=== PATIENT | male | born 1965 | race Caucasian/White ===

== ENCOUNTER 2020-06-20 15:30 | Outpatient (REF) | payer OTHER, SELFPAY | END 2020-06-20 15:31 | disposition home or self-care (01) | LOC: HO.LAB 15:30 | PROVIDERS: Visit Provider Internal Medicine | DX: Z20.828 Contact with and (suspected) exposure to other viral communicable diseases (principal) | CPT/HCPCS: 87635 ==

== ENCOUNTER 2022-02-11 12:07 | Outpatient (REF) | payer OTHER, SELFPAY ==
[2022-02-11 12:21] LABS: MANUAL DIFF FLAG NO
[2022-02-11 12:37] LABS: Basophils Absolute Auto 0.2 X10*3/uL (0.0-0.2); Eosinophils Absolute Auto 0.3 X10*3/uL (0.0-0.4); Eosinophils Percent Auto 2.2 % (0-4); Hematocrit 45.7 % (42.0-52.0); Hemoglobin 15.3 g/dl (14.0-18.0); Imm Gran Abs Auto 0.13 X10*3/uL (0.00-0.03); Imm Gran Pct Auto 0.8 % (0.0-0.4); Lymphocytes Absolute Auto 3.3 X10*3/uL (1.2-4.9); Lymphocytes Percent Auto 21.1 % (20-40); Mean Corpuscular HGB Conc 33.5 g/dl (31.0-36.0); Mean Corpuscular Hemoglobin 29.1 pg (27.0-33.0); Mean Platelet Volume 10.6 fL (9.4-12.4); Monocytes Absolute Auto 0.9 X10*3/uL (0.1-1.2); Neutrophils Absolute Auto 10.9 x10*3/uL (2.0-8.3); Neutrophils Percent Auto 68.9 % (45-73); Platelet Count 312 X10*3/uL (160-400); Red Blood Count 5.25 X10*6/uL (4.60-5.80); Red Cell Distribution Width 12.9 % (11.0-16.0); White Blood Count 15.8 X10*3/uL (4.8-10.8)
[2022-02-11 12:56] LABS: Alanine Aminotransferase 22 U/L (0-40); Albumin Level 4.4 g/dL (3.5-5.0); Alkaline Phosphatase 88 U/L (39-117); Anion Gap 13 (12-20); Aspartate Amino Transferase 14 U/L (5-37); Bilirubin Total 0.5 mg/dL (0.0-1.0); Blood Urea Nitrogen 7 mg/dL (9-16); Calcium 9.2 mg/dL (8.4-10.2); Carbon Dioxide 28 mmol/L (22-29); Chloride 98 mmol/L (96-108); Cholesterol 244 mg/dL; Estimated Glomerular Filt Rate > 60; Glucose Fasting 277 mg/dL (60-99); HDL Cholesterol 31 mg/dL; LDL Cholesterol Calculated 144 mg/dl; Potassium 4.6 mmol/L (3.3-5.1); Sodium 134 mmol/L (135-145); Total Protein 6.9 g/dL (6.5-8.0); Triglycerides 347 mg/dL
[2022-02-11 13:15] LABS: TSH reflex Free T4 1.56 uIU/mL (0.32-4.0)
[2022-02-11 13:48] LABS: Appearance Urine CLEAR; Color Urine YELLOW; Glucose Urine UA 100 MG/DL (NEG); Leukocyte Esterase Urine NEG (NEG); Nitrite Urine NEG (NEG); Urine Blood NEG (NEG); Urine Ketones NEG (NEG); Urine Protein NEG (NEG-TRACE)
== END 2022-02-11 12:08 | disposition home or self-care (01) ==
LOC: HO.LAB 12:07
PROVIDERS: PCP Internal Medicine; Visit Provider Internal Medicine
DX: E78.00 Pure hypercholesterolemia, unspecified (principal); R03.0 Elevated blood-pressure reading, without diagnosis of hypertension; F17.200 Nicotine dependence, unspecified, uncomplicated; E78.5 Hyperlipidemia, unspecified
CPT/HCPCS: 36415; 80053; 80061; 81003; 84443; 85025

== ENCOUNTER 2022-02-26 12:36 | Outpatient (REF) | payer OTHER, SELFPAY ==
--- NOTE | ~2022-02-26 | XR_ITS ---
EXAMINATION: XR LUMBOSACRAL SPINE CLINICAL INFORMATION: Low back pain, unspecified. COMPARISON: None TECHNIQUE: Three views of the lumbosacral spine. FINDINGS: Normal lumbar segmentation with 5 [id number] vertebral bodies of normal height and normal lumbar lordosis. No vertebral compression or spondylolisthesis or destructive process. There is borderline mild multilevel vertebral spurring. Mild disc narrowing L4-L5. No endplate sclerosis or erosive change. Facet degeneration L4 through S1. The SI joints and visualized sacrum are unremarkable. XR/XR lumbar spine 2-3V IMPRESSION: -Mild disc narrowing L4-L5. -Facet degeneration L4 through S1. -No vertebral compression, spondylolisthesis, or destructive process.
[2022-02-26 13:46] LABS: C Reactive Protein 2.95 mg/dL (< or = 0.50); Rheumatoid Factor < 15.0 IU/mL (<15.0)
[2022-02-26 14:07] LABS: Erythrocyte Sedimentation Rate 5 MM/HR (0-15)
[2022-02-26 14:21] LABS: Folate 10.2 ng/mL (> or = 4.0); Vitamin B12 755 pg/mL (200-900)
[2022-02-27 21:37] LABS: Lyme Abs Screen <0.90 index
[2022-03-03 10:22] LABS: Anti Nuclear Antibody Screen NEGATIVE (NEGATIVE)
== END 2022-02-26 12:37 | disposition home or self-care (01) ==
LOC: HO.LAB 12:36
PROVIDERS: PCP Internal Medicine; Visit Provider Internal Medicine
DX: I73.9 Peripheral vascular disease, unspecified (principal); G89.29 Other chronic pain; M54.50 Low back pain, unspecified
CPT/HCPCS: 36415; 72100; 82607; 82746; 85652; 86038; 86039; 86140; 86431; 86617; 86618

== ENCOUNTER → 2022-05-11 08:43 | Outpatient (BNVA) | payer OTHER, SELFPAY | PROVIDERS: PCP Internal Medicine; Visit Provider Internal Medicine | DX: I73.9 Peripheral vascular disease, unspecified (principal) | CPT/HCPCS: 99202 ==

== ENCOUNTER 2022-09-08 11:51 | Outpatient (REF) | payer OTHER, SELFPAY ==
[2022-09-08 12:14] LABS: MANUAL DIFF FLAG NO
[2022-09-08 12:40] LABS: Basophils Absolute Auto 0.2 X10*3/uL (0.0-0.2); Basophils Percent Auto 1.2 % (0-2); Eosinophils Absolute Auto 0.5 X10*3/uL (0.0-0.4); Eosinophils Percent Auto 3.2 % (0-4); Hemoglobin 13.9 g/dl (14.0-18.0); Imm Gran Abs Auto 0.09 X10*3/uL (0.00-0.03); Imm Gran Pct Auto 0.6 % (0.0-0.4); Lymphocytes Absolute Auto 3.2 X10*3/uL (1.2-4.9); Lymphocytes Percent Auto 23.4 % (20-40); Mean Corpuscular HGB Conc 33.1 g/dl (31.0-36.0); Mean Corpuscular Hemoglobin 28.6 pg (27.0-33.0); Mean Corpuscular Volume 86.4 fL (80.0-98.0); Mean Platelet Volume 10.2 fL (9.4-12.4); Monocytes Absolute Auto 1.1 X10*3/uL (0.1-1.2); Monocytes Percent Auto 8.2 % (2-11); Neutrophils Absolute Auto 8.8 x10*3/uL (2.0-8.3); Neutrophils Percent Auto 63.4 % (45-73); Platelet Count 341 X10*3/uL (160-400); Red Blood Count 4.86 X10*6/uL (4.60-5.80); Red Cell Distribution Width 13.5 % (11.0-16.0); White Blood Count 13.9 X10*3/uL (4.8-10.8)
[2022-09-08 13:14] LABS: Alanine Aminotransferase 19 U/L (0-40); Albumin Level 4.3 g/dL (3.5-5.0); Alkaline Phosphatase 75 U/L (39-117); Anion Gap 13 (12-20); Aspartate Amino Transferase 18 U/L (5-37); Bilirubin Total 0.4 mg/dL (0.0-1.0); Blood Urea Nitrogen 14 mg/dL (9-16); Calcium 9.3 mg/dL (8.4-10.2); Carbon Dioxide 28 mmol/L (22-29); Chloride 100 mmol/L (96-108); Cholesterol 170 mg/dL; Estimated Glomerular Filt Rate > 60; Glucose Fasting 124 mg/dL (60-99); HDL Cholesterol 27 mg/dL; LDL Cholesterol Calculated 105 mg/dl; Potassium 4.5 mmol/L (3.3-5.1); Sodium 136 mmol/L (135-145); Total Protein 6.6 g/dL (6.5-8.0); Triglycerides 193 mg/dL
[2022-09-08 13:35] LABS: TSH reflex Free T4 2.95 uIU/mL (0.32-4.0); Vitamin D 25-OH Total 40.9 ng/mL (>30)
[2022-09-08 14:21] LABS: Estimated Average Glucose 134 mg/dL; Hemoglobin A1c % 6.3 %
== END 2022-09-08 11:52 | disposition home or self-care (01) ==
LOC: HO.LAB 11:51
PROVIDERS: PCP Internal Medicine; Visit Provider Internal Medicine
DX: E78.00 Pure hypercholesterolemia, unspecified (principal); E11.9 Type 2 diabetes mellitus without complications; E55.9 Vitamin D deficiency, unspecified; I10 Essential (primary) hypertension
CPT/HCPCS: 36415; 80053; 80061; 82306; 83036; 84443; 85025

== ENCOUNTER → 2022-09-25 09:59 | Outpatient (BNVA) | payer OTHER, SELFPAY | PROVIDERS: PCP Internal Medicine; Visit Provider Internal Medicine | DX: I73.9 Peripheral vascular disease, unspecified (principal) | CPT/HCPCS: 99212 ==

== ENCOUNTER 2023-02-26 03:29 | Emergency (ER) | payer OTHER, SELFPAY ==
[2023-02-26 03:39] VITALS: BP 173/103; BP 180/100; PULSE 85; PULSE 99; RESP 18; TEMP 36.6; O2SAT 98; O2SAT 99; BMI 27.0
[2023-02-26 03:54] VITALS: PULSE 85
[2023-02-26 03:58] VITALS: BP 173/103; PULSE 85; RESP 16; TEMP 36.8; O2SAT 98
--- NOTE | 2023-02-26 03:59 | PC.NURSE ---
Pt continually needs redirecting to return to his room and is escalating verbally, exhibiting increased agitation and irritability. MD aware. Security requested for safety. Will continue to monitor.
--- NOTE | 2023-02-26 04:00 | ED_ITS ---
HPI - General Adult General Chief complaint: ETOH/Substance Use Stated complaint: withdraws Time Seen by Provider: 02/26/23 03:56 Source: patient Mode of arrival: EMS Limitations: no limitations History of Present Illness HPI narrative: Patient comes in the emergency room complaining of fentanyl withdrawal. Patient states that he has pain all over, denies nausea. Patient states that he was seen at [facility] earlier today but he left against medical advise because he wanted a cigarette and he was denied the opportunity to smoke in the hospital. Patient states that he is on methadone, requesting a dose . Patient states that he normally uses six bags of fentanyl per day. Related Data Home Medications Medication Instructions Recorded Confirmed methadone 10 mg/mL oral concentrate 85 mg PO DAILY 06/03/21 09/25/22 fluoxetine 20 mg capsule 20 mg PO DAILY 02/26/22 09/25/22 Previous Rx's Medication Instructions Recorded sitagliptin phosphate 100 mg 100 mg PO DAILY 30 days #30 tabs 05/11/22 tablet (Januvia) atorvastatin 10 mg tablet 10 mg PO BEDTIME #90 tabs 10/07/22 metformin 1,000 mg tablet 1,000 mg PO BID 30 days #60 tabs 10/29/22 trazodone 50 mg tablet 50 - 75 mg PO BEDTIME #45 tabs 02/23/23 Allergies Allergy/AdvReac Type Severity Reaction Status Date / Time No Known Allergies Allergy Verified 09/25/22 10:05 Review of Systems Review of Systems: Constitutional : No Weight loss, No Fever, No Chills, No Night Sweats, complaining of ?pain all over? ENT/Mouth : No Hearing loss, No Ear Pain, No Nasal Congestion, No Sinus Pain, No Hoarseness, No sore throat, No Rhinorrhea, No Swallowing Difficulty Eyes: No Eye Pain, No Swelling, No Redness, No Foreign Body, No Discharge, No Vision Changes Cardiovascular : No Chest Pain, No SOB, No Dyspnea on Exertion, No Orthopnea, No Edema, No Palpitations Respiratory : No Cough, No Sputum, No Wheezing, No Smoke Exposure, No Dyspnea Gastrointestinal : No Nausea, No Vomiting, No Diarrhea, No Constipation, No abdominal Pain, No Hematochezia, No Melena Genitourinary : no irregular bleeding, No Dysuria, No Urinary Frequency, No Hematuria, No Urinary Incontinence, No Urgency, No Flank Pain, No Urinary Flow Changes, No Hesitancy Musculoskeletal : No joint pain, No Myalgias, No Joint Swelling Skin : No Skin Lesions, No rash Neuro : No Weakness, No Numbness, No Paresthesias, No Loss of Consciousness, No Dizziness, No Headache Psych : No Anxiety/Panic, No Depression, No SI/HI/AH/VH, admits to using fentanyl daily Heme/Lymph: No Bruising, No Bleeding,No Lymphadenopathy Endocrine : No Polyuria, No Polydipsia, No Temperature Intolerance [facility] Past Medical History Medical History (Updated 02/26/23 @ 04:06 by Hamida Guan MD) Allergic rhinitis Anxiety Cerebellar infarct Depression Diabetes mellitus Elevated blood pressure reading Epigastric pain GERD without esophagitis History of substance abuse Hyperlipidemia Insomnia Overweight (BMI 25.0-29.9) Smoker Substance abuse Surgical History History of surgery Family History Family History Father Heart problem Hypertension Diabetes Mother S/P CABG x 1 Maternal Grandmother Medical history unknown Other Mental health problem Social History Social History Housing: Apartment Alcohol intake: never Patient Tobacco Use Status: Current someday Tobacco user Smoked in Last 30 Days: Yes Second Hand Smoke Exposure: Yes Use of substances other than those prescribed or required for medical reasons: Yes Substance Use Type Other:: Fentanyl Substance Use Frequency: Daily Last Used Substance: Hours (ago) Advance Directives: No Advance Directives Information Provided: No service: No Current occupational status: unemployed Cognitive needs: No Hearing needs: No Vision needs: Yes Physical Exam ED Vital Signs: Vital Signs - 24 hr 02/26/23 03:39 02/26/23 03:58 02/26/23 06:14 Temperature 98 F 98.2 F Pulse Rate 85 85 Respiratory Rate 18 16 17 Blood Pressure 173/103 H 173/103 H Pulse Oximetry 99 98 Oxygen Delivery Method Room Air Room Air BMI result Body Mass Index 27.0 Const Other: Appearance: Alert. Oriented X3. Yelling and screaming, demanding medication Eyes: Pupils equal, round and reactive to light. ENT: Pharynx normal. Neck: Normal inspection. Neck supple. No lymph nodes noted. No crepitus CVS: Normal heart rate and rhythm. Pulses normal. Normal S1 and S2 Respiratory: No respiratory distress. Breath sounds normal. No Wheezing. No rales Abdomen: Soft and nontender. No rigidity. No distention. Skin: Skin warm and dry. Normal skin color. Normal skin turgor. Extremities: No lower extremity edema. No Lacerations. No Rash Neuro: Oriented X 3. No motor deficit. No sensory deficit. Moving all extremities. No slurred speech. CN 2 through 12 grossly intact Psych: Anxious, yelling, demanding pain medication Course Course Course Narrative: -I discussed with the patient that in about an hour his methadone clinic will open and once we confirm the methadone dose, we can provide him with and dose. -in the meantime, patient being provided with p.o. acetaminophen, clonidine, Imodium, nicotine patch, sublingual Zofran to help him with the symptoms -we will contact the care team/Angela Mcgarry in the morning, consult pending -physician observation started that for a.m. Medications Administered Discontinued Medications Generic Name Dose Route Start Last Admin Trade Name Mireya PRN Reason Stop Dose Admin Acetaminophen 975 mg 02/26/23 03:58 02/26/23 04:07 Acetaminophen 325 Mg Tablet PO 02/26/23 03:59 975 mg ONCE ONE Administration Clonidine HCl 0.2 mg 02/26/23 03:58 02/26/23 04:07 Clonidine Hcl 0.2 Mg Tablet PO 02/26/23 03:59 0.2 mg ONCE ONE Administration Protocol Loperamide HCl 4 mg 02/26/23 03:58 02/26/23 04:07 Loperamide Hcl 2 Mg Capsule PO 02/26/23 03:59 4 mg ONCE ONE Administration Nicotine 21 mg 02/26/23 03:58 02/26/23 04:07 Nicotine 21 Mg Patch.Td24 TRANSDERMA 02/26/23 03:59 21 mg ONCE ONE Administration Ondansetron HCl 4 mg 02/26/23 03:58 02/26/23 04:07 Ondansetron Odt 4 Mg Tab.Rapdis TRANSLINGU 02/26/23 03:59 4 mg ONCE ONE Administration Medical Decision Making Medical Decision Making MDM Narrative: -patient's nurse was able to confirm the methadone dose, which is 30 mg. Patient provided this morning with the 30 mg dose Lab Data Labs: Lab Results 02/26/23 Range/Units 04:16 Urine Opiates Screen POSITIVE H (Not Detect) Urine Fentanyl Screen POSITIVE H (Not Detect) Ur Barbiturates Screen Not Detected (Not Detect) Ur Phencyclidine Scrn Not Detected (Not Detect) Ur Amphetamines Screen Not Detected (Not Detect) U Benzodiazepines Scrn Not Detected (Not Detect) Urine Cocaine Screen Not Detected (Not Detect) U Marijuana (THC) Screen POSITIVE H (Not Detect) Discharge Plan Discharge Clinical Impression: Substance abuse Patient Disposition: Home, Self-Care Prescriptions: No Action atorvastatin 10 mg tablet 10 mg PO BEDTIME Qty: 90 1RF metformin 1,000 mg tablet 1,000 mg PO BID 30 Days Qty: 60 3RF trazodone 50 mg tablet 50 - 75 mg PO BEDTIME Qty: 45 2RF methadone 10 mg/mL concentrate 85 mg PO DAILY fluoxetine 20 mg capsule 20 mg PO DAILY Januvia 100 mg tablet 100 mg PO DAILY 30 Days Qty: 30 3RF
[2023-02-26] MEDS: cloNIDine HCL 0.2 MG TABLET PO (04:07)
[2023-02-26] MEDS: Ondansetron ODT 4 MG TAB.RAPDIS TRANSLINGU (04:07)
[2023-02-26] MEDS: Acetaminophen 325 MG TABLET 975 MG PO (04:07)
[2023-02-26] MEDS: Nicotine 21 MG PATCH.TD24 TRANSDERMA (04:07)
[2023-02-26] MEDS: Loperamide HCl 2 MG CAPSULE 4 MG PO (04:07)
[2023-02-26 04:33] LABS: Amphetamine Screen Urine Not Detected (Not Detect); Barbiturates, Urine Not Detected (Not Detect); Benzodiazepines Screen Urine Not Detected (Not Detect); Cannabinoid Screen Urine POSITIVE (Not Detect); Cocaine Screen Urine Not Detected (Not Detect); Fentanyl, urine POSITIVE (Not Detect); Opiate Screen Urine POSITIVE (Not Detect); Phencyclidine Screen Urine Not Detected (Not Detect)
[2023-02-26 06:14] VITALS: RESP 17
--- NOTE | 2023-02-26 06:34 | PC.NURSE ---
Pt arrived to ER reporting withdrawals from fentanyl. Pt reports he usually uses 6 bags a day and his last use was the morning of 02/25. Pt reports he doesn't feel good and has pain all over. Denied SOB, hallucinations, has minimal tremors, and is very restless. Pt was seen at [facility] 02/25 for the same but left because he wanted a cigarette. Pt states he is on methadone and has been demanding his dose, despite attempts to explain that we cannot get methadone until we verify the dose from the clinic. Pt was inconsistent in his dose and clinic. Stated he was going somewhere in [place] but wants to go somewhere in [place]. Paperwork from [facility] was found stating his last dose was 02/25 at 30mg. Pt was resistant to changeover, security was present and searched his belongings, which turned up with nothing. Pt was medicated per OCT and eventually laid down in bed. Pt is now awake and restless, asking for his methadone. Pt was willing to put a merry on over his clothes but will not get undressed underneath.
[2023-02-26] MEDS: methADONE HCl 20 MG/2 ML ORAL.CONC 30 MG PO (06:48)
--- NOTE | 2023-02-26 10:27 | MHC.RECOVRN ---
Met with pt in ED19 after pt presented to ED for withdrawal symptoms. Pt wandering ED, brought back to room. Pt appears anxious but comfortable. Pt states I'm still withdrawing. I need more methadone. Look at my face, my face doesn't look like this. When asked to elaborate on withdrawal symptoms, pt continues to reference his face and reports upset stomach. No gooseflesh, diaphoresis, rhinorrhea, tearing. Pt reports taking 100 mg methadone at an [facility] in [place], last dose a couple months ago. Pt received 30 mg methadone at [facility] yesterday and 30 mg today at [facility] Pt educated on titration process. Pt requesting referral to be sent to [facility] as it is closer to his home in [place]. Pt plans to follow up with [facility] in the morning. Pt aware of location, time to go, what to bring. Denies questions or concerns at this time. Referral sent to [facility]. RN and provider aware.
== END 2023-02-26 09:11 | disposition home or self-care (01) ==
PROVIDERS: Emergency Medicine; Emergency Provider Emergency Medicine Emergency Medical Services; PCP Internal Medicine
DX: F19.10 Other psychoactive substance abuse, uncomplicated (principal); F11.20 Opioid dependence, uncomplicated; E11.9 Type 2 diabetes mellitus without complications; E78.5 Hyperlipidemia, unspecified; F17.210 Nicotine dependence, cigarettes, uncomplicated; Z79.02 Long term (current) use of antithrombotics/antiplatelets; Z79.4 Long term (current) use of insulin
CPT/HCPCS: 80307; 99285

== ENCOUNTER 2023-04-02 14:56 | Outpatient (AMB) | payer OTHER, SELFPAY ==
[2023-04-02 14:58] VITALS: BP 130/74; PULSE 65; O2SAT 94; BMI 26.6
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
== END 2023-04-02 15:26 | disposition home or self-care (01) ==
PROVIDERS: PCP Internal Medicine; Visit Provider Internal Medicine
DX: E11.65 Type 2 diabetes mellitus with hyperglycemia (principal)
CPT/HCPCS: 83036; 99214

== ENCOUNTER 2023-04-16 12:54 | Outpatient (REF) | payer OTHER, SELFPAY ==
--- NOTE | 2023-04-16 12:56 | EMG_ITS ---
Please see EMG / Nerve Conduction Report. MTDD
--- NOTE | 2023-04-16 13:32 | HO.EMG-NCS ---
Physiatry - EMG/NCS EMG/NCS Chief complaint: Chronic bilateral feet pain numbness, chronic back pain, diabetic. Reason for referral: Evaluate for neuropathy Referred by: Dr. Pulido Procedure done: Bilateral lower extremity NCS/EMG Precautions and/or limitations: None The limb temperature was monitored continuously and remained between 32-36 degrees C during the performance of the NCS. Nerve Conduction Studies Anti Sensory Summary Table ?Stim Site NR Onset (ms) Norm Onset (ms) Peak (ms) Norm Peak (ms) O-P Amp (?V) Norm O-P Amp Site1 Site2 Delta-0 (ms) Dist (cm) Zafar (m/s) Norm Zafar (m/s) Left Sural Anti Sensory (Lat Mall) Calf NR <4.0 >5.0 Calf Lat Mall 14.0 Right Sural Anti Sensory (Lat Mall) Calf ? 4.5 4.7 <4.0 0.0 >5.0 Calf Lat Mall 4.5 14.0 31 Motor Summary Table ?Stim Site NR Onset (ms) Norm Onset (ms) O-P Amp (mV) Norm O-P Amp iAmp (mV) Amp (1st) (%) Site1 Site2 Delta-0 (ms) Dist (cm) Zafar (m/s) Norm Zafar (m/s) Left Peroneal Motor (Ext Dig Brev) Ankle ? 4.8 <4.0 3.9 >2.5 4.7 100.0 Ankle Ext Dig Brev 4.8 0.0 B Fib ? 11.6 3.4 4.0 87.2 B Fib Ankle 6.8 29.5 43 >40 Poplt ? 12.2 3.4 3.8 87.2 Poplt B Fib 0.6 4.0 67 >40 Right Peroneal Motor (Ext Dig Brev) Ankle ? 4.1 <4.0 4.5 >2.5 5.4 100.0 Ankle Ext Dig Brev 4.1 0.0 B Fib ? 10.5 4.0 4.9 88.9 B Fib Ankle 6.4 28.5 45 >40 Poplt ? 12.1 4.0 4.8 88.9 Poplt B Fib 1.6 4.0 25 >40 Left Tibial Motor (Abd Chery Brev) Ankle ? 3.3 <5 2.3 >2.5 2.9 100.0 Ankle Abd Chery Brev 3.3 0.0 Knee ? 13.8 1.3 1.6 56.5 Knee Ankle 10.5 39.5 38 >40 Right Tibial Motor (Abd Chery Brev) Ankle ? 3.8 <5 4.4 >2.5 7.1 100.0 Ankle Abd Chery Brev 3.8 0.0 Knee ? 12.0 3.7 5.4 84.1 Knee Ankle 8.2 37.0 45 >40 EMG ?Side Muscle Nerve Root Ins Act Fibs Psw Amp Dur Poly Recrt Int Pat Comment Right AbdHallucis MedPlantar S1-2 Nml Nml Nml Nml Nml 0 Nml Complete Right AntTibialis Dp Br Peron L4-5 Nml Nml Nml Nml Nml 0 Nml Complete Right PostTibialis Tibial L5, S1 Nml Nml Nml Nml Nml 0 Nml Complete Right MedGastroc Tibial S1-2 Nml Nml Nml Nml Nml 0 Nml Complete Right VastusMed Femoral L2-4 Nml Nml Nml Nml Nml 0 Nml Complete Left AbdHallucis MedPlantar S1-2 Nml Nml Nml Nml Nml 0 Nml Complete Left AntTibialis Dp Br Peron L4-5 Nml Nml Nml Nml Nml 0 Nml Complete Left PostTibialis Tibial L5, S1 Nml Nml Nml Nml Nml 0 Nml Complete Left MedGastroc Tibial S1-2 Nml Nml Nml Nml Nml 0 Nml Complete Left VastusMed Femoral L2-4 Nml Nml Nml Nml Nml 0 Nml Complete Paraspinal EMG ?Side Muscle Nerve Root Ins Act Fibs Psw Comment Right Lumbar Upper Rami Nml Nml Nml Right Lumbar Mid Rami Nml Nml Nml Right Lumbar Lower Rami Nml Nml Nml Left Lumbar Upper Rami Nml Nml Nml Left Lumbar Mid Rami Nml Nml Nml Left Lumbar Lower Rami Nml Nml Nml FINDINGS: Right peroneal motor nerve showed prolonged distal latency, normal amplitude and slow conduction velocity across the fibula. Right sural sensory nerve showed prolonged peak latency and small amplitude. Left peroneal motor nerve showed prolonged distal latency, normal amplitude and normal conduction velocity. Left tibial motor showed normal distal latency, small amplitude and slow conduction velocity. Left sural sensory nerve showed absent response. All other nerves tested were within normal. Concentric needle EMG was performed in selected muscles of the bilateral lower extremity and lumbar paraspinals. Study revealed Signs of electric abnormalities as shown in the table below. IMPRESSION: 1. This is an abnormal study. 2. 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 3. There is no electrodiagnostic evidence for lumbosacral plexopathy or lumbar radiculopathy. Thank you for your kind referral. Judy Leyva MD, KAMALJIT Board Certified, [place] [employer] and Rehabilitation (ABPMR) Board Certified, [place] Board of Electrodiagnostic Medicine (ABEM)
== END 2023-04-16 12:55 | disposition home or self-care (01) ==
LOC: HO.NEURO 12:54
PROVIDERS: PCP Internal Medicine; Visit Provider Internal Medicine
DX: G57.93 Unspecified mononeuropathy of bilateral lower limbs (principal)
CPT/HCPCS: 95860; 95886; 95907; 95909

== ENCOUNTER → 2023-04-16 12:54 | Outpatient (BNV) | payer OTHER, SELFPAY | PROVIDERS: PCP Internal Medicine; Visit Provider Physical Medicine & Rehabilitation | DX: G62.89 Other specified polyneuropathies (principal) | CPT/HCPCS: 95886; 95909 ==

== ENCOUNTER 2023-08-13 15:36 | Outpatient (AMB) | payer OTHER, SELFPAY ==
[2023-08-13 15:47] VITALS: BP 154/100; PULSE 87; O2SAT 95; BMI 26.0
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
== END 2023-08-13 16:24 | disposition home or self-care (01) ==
PROVIDERS: PCP Internal Medicine; Visit Provider Internal Medicine
DX: E11.65 Type 2 diabetes mellitus with hyperglycemia (principal); I73.9 Peripheral vascular disease, unspecified; F19.11 Other psychoactive substance abuse, in remission; Z86.73 Personal history of transient ischemic attack (TIA), and cerebral infarction without residual deficits; G57.93 Unspecified mononeuropathy of bilateral lower limbs; G89.4 Chronic pain syndrome; E78.5 Hyperlipidemia, unspecified; R10.84 Generalized abdominal pain; R03.0 Elevated blood-pressure reading, without diagnosis of hypertension; G47.00 Insomnia, unspecified; F41.9 Anxiety disorder, unspecified; F32.9 Major depressive disorder, single episode, unspecified
CPT/HCPCS: 99214

== ENCOUNTER 2023-08-16 12:34 | Outpatient (REF) | payer OTHER, SELFPAY ==
[2023-08-16 13:01] LABS: MANUAL DIFF FLAG NO
[2023-08-16 13:42] LABS: Estimated Average Glucose 111 mg/dL; Hemoglobin A1C 139.4987 umol/L; Hemoglobin A1c % 5.5 % (<6.0)
[2023-08-16 13:57] LABS: Appearance Urine Clear; Color Urine Yellow; Glucose Urine UA Negative (Negative); Leukocyte Esterase Urine Negative (Negative); Nitrite Urine Negative (Negative); PH 5.5 (5.0-9.0); Urine Blood Negative (Negative); Urine Ketones Negative (Negative); Urine Protein Negative (Neg-Trace)
[2023-08-16 13:58] LABS: Creatinine Urine 115.67 mg/dL; Microalbum/Creatinine Ratio Ur 8.6 ug/mg cr (<30)
[2023-08-16 14:06] LABS: Basophils Absolute Auto 0.2 X10*3/uL (0.0-0.2); Basophils Percent Auto 1.4 % (0-2); Eosinophils Absolute Auto 0.5 X10*3/uL (0.0-0.4); Eosinophils Percent Auto 3.1 % (0-4); Hematocrit 43.8 % (42.0-52.0); Hemoglobin 14.9 g/dl (14.0-18.0); Imm Gran Pct Auto 0.7 % (0.0-0.4); Lymphocytes Absolute Auto 4.4 X10*3/uL (1.2-4.9); Lymphocytes Percent Auto 29.6 % (20-40); Mean Corpuscular Hemoglobin 29.9 pg (27.0-33.0); Monocytes Absolute Auto 1.2 X10*3/uL (0.1-1.2); Monocytes Percent Auto 7.8 % (2-11); Neutrophils Absolute Auto 8.5 x10*3/uL (2.0-8.3); Neutrophils Percent Auto 57.4 % (45-73); Platelet Count 305 X10*3/uL (160-400); Red Blood Count 4.98 X10*6/uL (4.60-5.80); Red Cell Distribution Width 13.5 % (11.0-16.0); White Blood Count 14.7 X10*3/uL (4.8-10.8)
[2023-08-16 14:17] LABS: Alanine Aminotransferase 17 U/L (0-40); Albumin Level 4.5 g/dL (3.5-5.0); Alkaline Phosphatase 67 U/L (39-117); Anion Gap 14 (12-20); Aspartate Amino Transferase 19 U/L (5-37); Bilirubin Total 0.3 mg/dL (0.0-1.0); Blood Urea Nitrogen 14 mg/dL (9-16); Calcium 9.6 mg/dL (8.4-10.2); Carbon Dioxide 27 mmol/L (22-29); Chloride 99 mmol/L (96-108); Cholesterol 170 mg/dL (<200); Estimated Glomerular Filt Rate > 60; Glucose Fasting 65 mg/dL (60-99); HDL Cholesterol 30 mg/dL (>40); LDL Cholesterol Calculated 106 mg/dL (<100); Potassium 4.4 mmol/L (3.3-5.1); Sodium 136 mmol/L (135-145); Total Protein 7.1 g/dL (6.5-8.0); Triglycerides 173 mg/dL (<150)
[2023-08-16 14:23] LABS: TSH reflex Free T4 2.26 uIU/mL (0.32-4.0); Vitamin D 25-OH Total 60.7 ng/mL (>30)
[2023-08-16 14:34] LABS: Vitamin B12 643 pg/mL (200-900)
== END 2023-08-16 12:35 | disposition home or self-care (01) ==
LOC: HO.LAB 12:34
PROVIDERS: PCP Internal Medicine; Visit Provider Internal Medicine
DX: I10 Essential (primary) hypertension (principal); E11.9 Type 2 diabetes mellitus without complications; E78.00 Pure hypercholesterolemia, unspecified; E55.9 Vitamin D deficiency, unspecified; E53.8 Deficiency of other specified B group vitamins; R30.0 Dysuria
CPT/HCPCS: 36415; 80053; 80061; 81003; 82043; 82306; 82570; 82607; 82746; 83036; 84443; 85025

== ENCOUNTER 2023-12-22 09:26 | Outpatient (AMB) | payer MEDICARE, MEDICAID, SELFPAY ==
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
[2023-12-22 10:00] VITALS: BP 138/88; PULSE 78; O2SAT 97; BMI 26.5
== END 2023-12-22 10:55 | disposition home or self-care (01) ==
PROVIDERS: PCP Internal Medicine; Visit Provider Internal Medicine
DX: E78.5 Hyperlipidemia, unspecified (principal); E11.65 Type 2 diabetes mellitus with hyperglycemia; G57.93 Unspecified mononeuropathy of bilateral lower limbs; G89.4 Chronic pain syndrome; F32.9 Major depressive disorder, single episode, unspecified; I73.9 Peripheral vascular disease, unspecified; R03.0 Elevated blood-pressure reading, without diagnosis of hypertension; I63.9 Cerebral infarction, unspecified; F19.11 Other psychoactive substance abuse, in remission; G47.00 Insomnia, unspecified; F41.9 Anxiety disorder, unspecified; F17.200 Nicotine dependence, unspecified, uncomplicated; E66.3 Overweight
CPT/HCPCS: 83036; 96127; 99214

== ENCOUNTER 2024-05-03 12:57 | Outpatient (AMB) | payer OTHER, SELFPAY ==
[2024-05-03 13:18] VITALS: BP 166/90; PULSE 79; O2SAT 96; BMI 27.0
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
== END 2024-05-03 14:32 | disposition home or self-care (01) ==
PROVIDERS: PCP Internal Medicine; Visit Provider Internal Medicine
DX: E11.65 Type 2 diabetes mellitus with hyperglycemia (principal)
CPT/HCPCS: 83036; 99214; G2211

== ENCOUNTER 2024-05-12 12:17 | Outpatient (REF) | payer OTHER, SELFPAY ==
--- NOTE | ~2024-05-12 | XR_ITS ---
EXAMINATION: XR CHEST CLINICAL INFORMATION: Respiratory disorders. COMPARISON: 04/24/2019 TECHNIQUE: 2 views of the chest were obtained. FINDINGS: Redemonstration of asymmetric volume loss in the left hemithorax, improved since 2019 exam. Persistent asymmetric elevation of the left lung base. Dextroscoliosis of the thoracic spine with multilevel degenerative changes. There is no gross pneumothorax. No significant pleural effusion. No new focal consolidation to suggest pneumonia. XR/XR chest 2V IMPRESSION: Redemonstration of asymmetric volume loss in the left hemithorax, improved since 2019 exam. Persistent asymmetric elevation of the left lung base. Electronically signed by: Мария Vaughan MD 07/05/2024 10:38 AM EST
== END 2024-05-12 12:18 | disposition home or self-care (01) ==
LOC: HO.XRAY 12:17
PROVIDERS: PCP Internal Medicine; Visit Provider Internal Medicine
DX: J98.8 Other specified respiratory disorders (principal)
CPT/HCPCS: 71046

== ENCOUNTER → 2024-05-19 12:40 | Outpatient (BNVA) | payer OTHER, SELFPAY | PROVIDERS: PCP Internal Medicine ==

== ENCOUNTER 2024-09-20 08:19 | Outpatient (REF) | payer OTHER, SELFPAY ==
--- NOTE | ~2024-09-20 | XR_ITS ---
EXAMINATION: XR CHEST CLINICAL INFORMATION: J98.8 - Other specified respiratory disorders COMPARISON: 05/12/2024. TECHNIQUE: 2 views of the chest were obtained. FINDINGS: The cardiac, hilar, and mediastinal contours are normal. The lungs are clear bilaterally. There is no pneumothorax or pleural effusion. There is no focal osseous or soft tissue abnormality. XR/XR chest 2V IMPRESSION: Normal chest. Electronically signed by: Dany Malik MD 09/20/2024 10:00 AM [facility]
--- OUTSIDE RECORDS SUMMARY | 2024-09-20 08:23 | XMS_ITS | Clinical Summary ---
Author Organization [employer] Address [address] [place] [address] Care Team Providers Care Family Reunification Specialist Name Role Phone Unavailable Primary Care Provider Unavailabl e Social History Tobacco Use Types Packs/Day Years Used Date Smoking Tobacco: Never Assessed Sex and Gender Information Value Date Recorded Sex Assigned at Male 12/22/2022 9:47 AM EDT Legal Sex Male 9:33 AM EDT Gender Identity Male 12/22/2022 9:47 AM EDT Sexual Orientation Straight 12/22/2022 9: 47 AM EDT Plan of Treatment Health Maintenance Due Date Last Done Comments CT Colonography 1967 Colonoscopy 1967 Colorectal Cancer Screening 1967 Depression Screening 1967 FIT DNA/Cologuard 1967 FIT 1967 FOBT 1967 HIV Screening 1967 Lipid Panel 1967 SDOH Screening 1967 Sigmoidoscopy 1967 Alcohol/Substance Use Screening 1979 Tobacco Screening 1979 Hepatitis C Screening 12/16/1985 DTaP/Tdap/Td Vaccines (1 - Tdap) 12/16/1986 Hepatitis B Vaccines (1 of 3 - 19+ 3-dose series) 12/16/1986 Zoster Vaccines (1 of 2) 12/16/2017 COVID-19 Vaccine ( - 2023-2 5 season) 2024 Influenza Vaccine (#1) 2024 RSV Patients and Pa tients Aged 60 years or older (1 - 1-dose 75+ series) 12/16/2042 HIB Vaccines Aged Out No longer eligi ble based on patient's age to complete this topic HPV Vaccines Aged Out No longer eligi ble based on patient's age to complete this topic Hepatitis A Vaccines Aged Out No long er eligible based on patient's age to complete this topic IPV Vaccines Aged Out No longer eligi ble based on patient's age to complete this topic Meningococcal Vaccine Aged Out No kelly anthony eligible based on patient's age to complete this topic Pneumococcal Vaccine: Pediat rics (0 to 5 Years) and At-Risk Patients (6 to 64 Years) Aged Out No longer eligible b ased on patient's age to complete this topic RSV under 20 months Aged Out No longe r eligible based on patient's age to complete this topic Rotavirus Vaccines Aged Out No longer eligible based on patient's age to complete this topic Insurance [place] [id number] MEDICARE
[2024-09-20 08:45] LABS: MANUAL DIFF FLAG NO
[2024-09-20 08:57] LABS: Basophils Absolute Auto 0.2 X10*3/uL (0.0-0.2); Basophils Percent Auto 1.1 % (0-2); Eosinophils Absolute Auto 0.5 X10*3/uL (0.0-0.4); Hematocrit 37.5 % (42.0-52.0); Hemoglobin 12.3 g/dl (14.0-18.0); Imm Gran Abs Auto 0.08 X10*3/uL (0.00-0.03); Imm Gran Pct Auto 0.6 % (0.0-0.4); Lymphocytes Percent Auto 30.5 % (20-40); Mean Corpuscular HGB Conc 32.8 g/dl (31.0-36.0); Mean Corpuscular Hemoglobin 28.9 pg (27.0-33.0); Mean Corpuscular Volume 88.2 fL (80.0-98.0); Mean Platelet Volume 10.3 fL (9.4-12.4); Monocytes Absolute Auto 1.3 X10*3/uL (0.1-1.2); Monocytes Percent Auto 9.9 % (2-11); Neutrophils Percent Auto 53.9 % (45-73); Platelet Count 322 X10*3/uL (160-400); Red Blood Count 4.25 X10*6/uL (4.60-5.80); White Blood Count 13.1 X10*3/uL (4.8-10.8)
[2024-09-20 09:01] LABS: Estimated Average Glucose 137 mg/dL; Hemoglobin A1C 147.3821 umol/L; Hemoglobin A1c % 6.4 % (<6.0); Total Hemoglobin (HGBA1C) 3205.6663 umol/L
[2024-09-20 09:30] LABS: Alanine Aminotransferase 26 U/L (0-40); Alkaline Phosphatase 83 U/L (39-117); Anion Gap 9 (12-20); Aspartate Amino Transferase 28 U/L (5-37); Bilirubin Total 0.3 mg/dL (0.0-1.0); Blood Urea Nitrogen 20 mg/dL (9-16); Calcium 9.8 mg/dL (8.4-10.2); Carbon Dioxide 30 mmol/L (22-29); Chloride 102 mmol/L (96-108); Cholesterol 149 mg/dL (<200); Estimated Glomerular Filt Rate > 60; Glucose Fasting 125 mg/dL (60-99); HDL Cholesterol 27 mg/dL (>40); LDL Cholesterol Calculated 85 mg/dL (<100); Sodium 136 mmol/L (135-145); Total Protein 7.2 g/dL (6.5-8.0); Triglycerides 189 mg/dL (<150)
[2024-09-20 09:43] LABS: TSH reflex Free T4 3.07 uIU/mL (0.32-4.0); Vitamin D 25-OH Total 47.6 ng/mL (>30)
[2024-09-20 09:49] LABS: Erythrocyte Sedimentation Rate 13 MM/HR (0-15)
[2024-09-20 09:51] LABS: Folate 9.8 ng/mL (> or = 4.0); Vitamin B12 565 pg/mL (200-900)
== END 2024-09-20 08:20 | disposition home or self-care (01) ==
LOC: HO.LAB 08:19
PROVIDERS: Visit Provider Internal Medicine
DX: J98.8 Other specified respiratory disorders (principal); E78.2 Mixed hyperlipidemia; E11.65 Type 2 diabetes mellitus with hyperglycemia; G57.93 Unspecified mononeuropathy of bilateral lower limbs; G89.4 Chronic pain syndrome; I73.9 Peripheral vascular disease, unspecified; R03.0 Elevated blood-pressure reading, without diagnosis of hypertension; F19.11 Other psychoactive substance abuse, in remission; G47.00 Insomnia, unspecified; F41.9 Anxiety disorder, unspecified; F32.9 Major depressive disorder, single episode, unspecified; E66.3 Overweight; Z86.73 Personal history of transient ischemic attack (TIA), and cerebral infarction without residual deficits; F17.200 Nicotine dependence, unspecified, uncomplicated; E53.8 Deficiency of other specified B group vitamins; D64.9 Anemia, unspecified; E78.00 Pure hypercholesterolemia, unspecified; E55.9 Vitamin D deficiency, unspecified
CPT/HCPCS: 36415; 71046; 80053; 80061; 82306; 82607; 82746; 83036; 84443; 85025; 85652; 86140; 96127; 99212

== ENCOUNTER 2024-09-20 08:53 | Outpatient (AMB) | payer OTHER, SELFPAY ==
[2024-09-20 09:04] VITALS: BP 136/82; PULSE 76; TEMP 36.4; O2SAT 95; BMI 29.3
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
--- OUTSIDE RECORDS SUMMARY | 2024-09-20 09:12 | XMS_ITS | Clinical Summary ---
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
== END 2024-09-20 09:28 | disposition home or self-care (01) ==
PROVIDERS: PCP Internal Medicine; Visit Provider Internal Medicine
DX: E11.65 Type 2 diabetes mellitus with hyperglycemia (principal); I73.9 Peripheral vascular disease, unspecified; F19.11 Other psychoactive substance abuse, in remission; Z86.73 Personal history of transient ischemic attack (TIA), and cerebral infarction without residual deficits; J98.8 Other specified respiratory disorders; E78.2 Mixed hyperlipidemia; G57.93 Unspecified mononeuropathy of bilateral lower limbs; G89.4 Chronic pain syndrome; R03.0 Elevated blood-pressure reading, without diagnosis of hypertension; G47.00 Insomnia, unspecified; F41.9 Anxiety disorder, unspecified; F32.9 Major depressive disorder, single episode, unspecified

== ENCOUNTER → 2024-09-20 09:39 | Outpatient (BNV) | payer OTHER, SELFPAY | PROVIDERS: Visit Provider Radiology Diagnostic Radiology | DX: J98.8 Other specified respiratory disorders (principal) | CPT/HCPCS: 71046 ==

== ENCOUNTER 2025-02-20 20:40 | Emergency (ER) | payer OTHER, SELFPAY ==
--- NOTE | 2025-02-20 | ECG_ITS ---
Test Reason : WITHDRAW Blood Pressure : */* mmHG Vent. Rate : 90 BPM Atrial Rate : 90 BPM P-R Int : 142 ms QRS Dur : 72 ms QT Int : 328 ms P-R-T Axes : 41 46 24 degrees QTcB Int : 401 ms Normal sinus rhythm Early repolarization Otherwise normal ECG When compared with ECG of 24-Apr-2019 23:53, No significant change was found Referred By: Generic ED Physician Electronically Signed By: ADRIANNA HO
[2025-02-20 20:55] VITALS: BP 138/86; PULSE 100; RESP 16; TEMP 36.5; O2SAT 97; BMI 26.2
[2025-02-20 21:37] LABS: Hematocrit 41.5 % (42.0-52.0); Hemoglobin 14.4 g/dl (14.0-18.0); Mean Corpuscular HGB Conc 34.7 g/dl (31.0-36.0); Mean Corpuscular Hemoglobin 29.1 pg (27.0-33.0); Mean Platelet Volume 10.7 fL (9.4-12.4); Platelet Count 323 X10*3/uL (160-400); Red Blood Count 4.94 X10*6/uL (4.60-5.80); Red Cell Distribution Width 14.2 % (11.0-16.0); White Blood Count 17.6 X10*3/uL (4.8-10.8)
[2025-02-20 21:47] LABS: Alanine Aminotransferase 18 U/L (0-40); Alkaline Phosphatase 62 U/L (39-117); Anion Gap 13 (12-20); Aspartate Amino Transferase 18 U/L (5-37); Bilirubin Total 0.4 mg/dL (0.0-1.0); Blood Urea Nitrogen 18 mg/dL (9-16); Carbon Dioxide 27 mmol/L (22-29); Chloride 103 mmol/L (96-108); Creatinine Clr Calc Pharmacy 74.2; Estimated Glomerular Filt Rate > 60; Glucose Random 129 mg/dL (60-115); Magnesium 2.2 mg/dL (1.6-2.6); Potassium 4.3 mmol/L (3.3-5.1); Sodium 139 mmol/L (135-145); Total Protein 7.3 g/dL (6.5-8.0)
[2025-02-21 00:02] VITALS: BP 139/96; PULSE 90; RESP 16; TEMP 37.1; O2SAT 97
--- NOTE | 2025-02-21 00:14 | PC.NURSE ---
PATIENT LOUD YELLING AT T/W STATING I NEED TRAZODONE I HAVEN'T SLEPT IN 3 DAYS . DOMITILAETN EDUCATED ON ER WAIT TIMES HOWEVER PATIENT CONTINUED TO YELL ADMITTING INTERVIEWER CAME OVER AND PATIENT CALMED DOWN AND WENT BACK INTO STRETCHER. PATIENT EDUCATED ON ZERO TOLERANCE POLICY
[2025-02-21 02:19] VITALS: BP 152/77; PULSE 84; RESP 18; TEMP 36.7; O2SAT 98
[2025-02-21 02:31] LABS: Appearance Urine Clear; Color Urine Yellow; Glucose Urine UA Negative (Negative); Leukocyte Esterase Urine Negative (Negative); Nitrite Urine Negative (Negative); PH 6.5 (5.0-9.0); Specific Gravity - Urine <= 1.005 (1.005-1.025); Urine Blood Negative (Negative); Urine Ketones Negative (Negative); Urine Protein Negative (Neg-Trace)
[2025-02-21 02:40] LABS: Amphetamine Screen Urine Not Detected (Not Detect); Barbiturates, Urine Not Detected (Not Detect); Benzodiazepines Screen Urine Not Detected (Not Detect); Buprenorphine Scr Not Detected (Not Detect); Cannabinoid Screen Urine Not Detected (Not Detect); Cocaine Screen Urine POSITIVE (Not Detect); Fentanyl, urine Not Detected (Not Detect); Methadone Screen, Urine Positive (Not Detect); Opiate Screen Urine Not Detected (Not Detect); Oxycodone Screen Urine Not Detected (Not Detect); Phencyclidine Screen Urine Not Detected (Not Detect)
--- NOTE | 2025-02-21 03:19 | ED.GENADULT ---
HPI - General Adult General Chief complaint: General Medical Stated complaint: heat exhaustion no sleep asking for methad[facility] Time Seen by Provider: 02/21/25 03:14 History of Present Illness ED Provider: Augusto Wade MD HPI narrative: 59-year-old male who when I entered the room and interview him he is acting somewhat hostile and adversarial. He is walking around the room and demanding trazodone. Patient reports chronic pain and insomnia for 3 days. Denies drug use to me. No incontinence focal numbness tingling or weakness expressed Related Data Home Medications ?Medication ?Instructions ?Recorded ?Confirmed fluoxetine 20 mg capsule 20 mg PO DAILY 02/26/22 09/20/24 methadone 10 mg/mL oral concentrate 100 mg PO DAILY 12/22/23 09/20/24 clonidine HCl 0.1 mg tablet mg PO BEDTIME 09/20/24 09/20/24 Previous Rx's ?Medication ?Instructions ?Recorded blood pressure monitor #1 ea 05/19/24 blood sugar diagnostic (FreeStyle #100 ea 05/19/24 Test strips) blood-glucose meter (FreeStyle #1 ea 05/19/24 Lite Meter kit) lancets 28 gauge (FreeStyle #100 ea 05/19/24 Lancets) gabapentin 300 mg capsule 300 mg PO BID 30 days #60 caps 08/24/24 atorvastatin 10 mg tablet 10 mg PO BEDTIME #90 tabs 09/18/24 cefuroxime axetil 500 mg tablet 500 mg PO BID 10 days #20 tabs 09/20/24 guaifenesin 600 mg tablet, 600 mg PO Q12H PRN 09/20/24 extended release 12 hr (Mucinex) congestion/cough #30 tabs metformin 1,000 mg tablet 1,000 mg PO BID 90 days #180 tabs 10/16/24 sitagliptin phosphate 100 mg 100 mg PO DAILY 90 days #90 tabs 12/06/24 tablet (Januvia) trazodone 50 mg tablet 75 mg (1.5 x 50 mg) PO BEDTIME 30 02/19/25 days #45 tabs trazodone 100 mg tablet 100 mg PO DAILY #3 tabs 02/21/25 Allergies Allergy/AdvReac Type Severity Reaction Status Date / Time No Known Allergies Allergy Verified 02/20/25 21:00 [facility] Past Medical History Medical History (Updated 02/22/25 @ 00:01 by Background Daemon) Mixed hyperlipidemia Substance abuse Cerebellar infarct Diabetes mellitus Anxiety Overweight (BMI 25.0-29.9) Epigastric pain GERD without esophagitis Allergic rhinitis Smoker Depression Insomnia History of substance abuse Elevated blood pressure reading Hyperlipidemia Surgical History History of surgery Family History Family History Father Heart problem Hypertension Diabetes Mother S/P CABG x 1 Maternal Grandmother Medical history unknown Other Mental health problem Social History Social History Housing: Apartment Alcohol intake: never Patient Tobacco Use Status: Current everyday Tobacco user Tobacco use type: Cigarette Cigarettes Per Day: 6 Smoked in Last 30 Days: Yes e-Cigarette/Vaping Use: Currently Using Second Hand Smoke Exposure: Yes Use of substances other than those prescribed or required for medical reasons: No Advance Directives: No Advance Directives Information Provided: Yes service: No Current occupational status: unemployed Cognitive needs: No Hearing needs: No Vision needs: Yes Physical Exam ED Vital Signs: Vital Signs - 24 hr 02/20/25 20:55 02/21/25 00:02 02/21/25 02:19 Temperature 97.7 F 98.8 F 98.0 F Pulse Rate 100 90 84 Respiratory Rate 16 16 18 Blood Pressure 138/86 139/96 H 152/77 H Pulse Oximetry 97 97 98 Oxygen Delivery Method Room Air Room Air Room Air BMI result Body Mass Index 26.2 Const Other: GENERAL: Well appearing. No apparent distress. Alert. HEAD/NECK: No visual trauma. EYES: Normal to inspection. No conjunctival erythema. No discharge. ENMT: Hearing grossly normal. External nose normal. RESPIRATORY: Respiratory effort normal. CARDIOVASCULAR: Additional details (Grossly well perfused). SKIN: No jaundice. NEUROLOGICAL: Alert. Moving all extremities x4. Additional details (No gross motor deficits. Normal tone. ). Steady gait walking around the room. PSYCHIATRIC: Alert. Appearance appropriate for situation. Medications Administered Discontinued Medications Generic Name Dose Route Start Last Admin Trade Name Freq PRN Reason Stop Dose Admin Trazodone HCl 75 mg 02/21/25 03:24 02/21/25 03:59 Trazodone Hcl 25 Mg Halftab PO 02/21/25 03:25 Not Given ONCE ONE Medical Decision Making Medical Decision Making MDM Narrative: 59-year-old male with unclear goals of his ED visit expressed. He reports severe insomnia chronic low back pain. He has not expressed any focal neurologic complaints to suggest neurologic compression or other acute emergent neurosurgical issue. I have offered trazodone as long as he gets a safe ride home. He does have outside prescriber I have asked him to contact them going forward. No acute medical emergency identified. Lab Data 02/20/25 21:26 02/20/25 21:26 Labs: Lab Results 02/20/25 02/21/25 Range/Units 21:26 02:24 WBC 17.6 H (4.8-10.8) X10*3/uL RBC 4.94 (4.60-5.80) X10*6/uL Hgb 14.4 (14.0-18.0) g/dl Hct 41.5 L (42.0-52.0) % MCV 84.0 (80.0-98.0) fL MCH 29.1 (27.0-33.0) pg MCHC 34.7 (31.0-36.0) g/dl RDW 14.2 (11.0-16.0) % Plt Count 323 (160-400) X10*3/uL MPV 10.7 (9.4-12.4) fL Absolute Nucleated RBC 0.000 (0.0-0.012) X10*3/uL Nucleated RBC % (auto) 0.0 (0.0-0.2) /100WBC Sodium 139 (135-145) mmol/L Potassium 4.3 (3.3-5.1) mmol/L Chloride 103 (96-108) mmol/L Carbon Dioxide 27 (22-29) mmol/L Anion Gap 13 (12-20) BUN 18 H (9-16) mg/dL Creatinine 0.99 (0.5-1.4) mg/dL Estim Creat Clear Calc 74.2 Estimated GFR > 60 Random Glucose 129 H (60-115) mg/dL Calcium 10.0 (8.4-10.2) mg/dL Magnesium 2.2 (1.6-2.6) mg/dL Total Bilirubin 0.4 (0.0-1.0) mg/dL AST 18 (5-37) U/L ALT 18 (0-40) U/L Alkaline Phosphatase 62 (39-117) U/L Total Protein 7.3 (6.5-8.0) g/dL Albumin 5.0 (3.5-5.0) g/dL Urine Color Yellow Urine Appearance Clear Urine pH 6.5 (5.0-9.0) Ur Specific [place] <= 1.005 (1.005-1.025) Urine Protein Negative (Neg-Trace) mg/dL Urine Glucose (UA) Negative (Negative) mg/dL Urine Ketones Negative (Negative) mg/dL Urine Blood Negative (Negative) Urine Nitrite Negative (Negative) Ur Leukocyte Esterase Negative (Negative) Urine Opiates Screen Not Detected (Not Detect) Ur Buprenorphine Scrn Not Detected (Not Detect) ng/mL Ur Oxycodone Screen Not Detected (Not Detect) ng/mL Urine Methadone Screen Positive H (Not Detect) ng/mL Urine Fentanyl Screen Not Detected (Not Detect) Ur Barbiturates Screen Not Detected (Not Detect) Ur Phencyclidine Scrn Not Detected (Not Detect) Ur Amphetamines Screen Not Detected (Not Detect) U Benzodiazepines Scrn Not Detected (Not Detect) Urine Cocaine Screen POSITIVE H (Not Detect) U Marijuana (THC) Screen Not Detected (Not Detect) Discharge Plan Discharge Clinical Impression: Acute hip pain Patient Disposition: Home, Self-Care Instructions: Hip Pain (ED) Prescriptions: New trazodone 100 mg tablet 100 mg PO DAILY Qty: 3 0RF No Action (DME) blood-glucose meter [FreeStyle Lite Meter] Kit See Rx Instructions .ROUTE .MEDSUPPLY Qty: 1 0RF Rx Instructions: As directed (DME) FreeStyle Test Strip See Rx Instructions .ROUTE .MEDSUPPLY Qty: 100 12RF Rx Instructions: As directed once a day (DME) lancets [FreeStyle Lancets] 28 gauge misc See Rx Instructions .ROUTE .MEDSUPPLY Qty: 100 12RF Rx Instructions: As directed once a day (DME) blood pressure monitor Kit See Rx Instructions .ROUTE .MEDSUPPLY Qty: 1 0RF Rx Instructions: As directed gabapentin 300 mg capsule 300 mg PO BID 30 Days Qty: 60 2RF atorvastatin 10 mg tablet 10 mg PO BEDTIME Qty: 90 1RF metformin 1,000 mg tablet 1,000 mg PO BID 90 Days Qty: 180 1RF Januvia 100 mg tablet 100 mg PO DAILY 90 Days Qty: 90 1RF trazodone 50 mg tablet 75 mg PO BEDTIME 30 Days Qty: 45 2RF fluoxetine 20 mg capsule 20 mg PO DAILY methadone 10 mg/mL concentrate 100 mg PO DAILY clonidine HCl 0.1 mg tablet PO BEDTIME cefuroxime axetil 500 mg tablet 500 mg PO BID 10 Days Qty: 20 0RF guaifenesin [Mucinex] 600 mg tablet extended release 12hr 600 mg PO Q12H PRN (Reason: congestion/cough) Qty: 30 1RF Interventions: ED Discharge Assessment Last Done: 02/21/25 03:59 Discharge Date/Time: 02/21/25 04:00 Print Language: Eritrean
[2025-02-21 03:59] VITALS: BP 152/77; PULSE 84; RESP 18; TEMP 36.7; O2SAT 98
== END 2025-02-21 04:00 | disposition home or self-care (01) ==
PROVIDERS: Emergency Provider Emergency Medicine; PCP Internal Medicine
DX: G47.00 Insomnia, unspecified (principal); M25.552 Pain in left hip; M25.551 Pain in right hip; T67.5XXA Heat exhaustion, unspecified, initial encounter; G89.29 Other chronic pain; R94.31 Abnormal electrocardiogram [ECG] [EKG]; F17.210 Nicotine dependence, cigarettes, uncomplicated; Z79.899 Other long term (current) drug therapy; Z51.81 Encounter for therapeutic drug level monitoring
CPT/HCPCS: 36415; 80053; 80307; 81003; 83735; 85027; 93005; 99284

== ENCOUNTER → 2025-02-20 21:18 | Outpatient (BNV) | payer OTHER, SELFPAY | PROVIDERS: Emergency Provider Emergency Medicine; PCP Internal Medicine; Visit Provider Internal Medicine | DX: F19.939 Other psychoactive substance use, unspecified with withdrawal, unspecified (principal) | CPT/HCPCS: 93010 ==

== ENCOUNTER 2025-08-28 14:15 | Outpatient (AMB) | payer OTHER, SELFPAY ==
[2025-08-28 14:18] VITALS: BP 124/78; PULSE 78; O2SAT 96; BMI 23.9
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
--- OUTSIDE RECORDS SUMMARY | 2025-08-28 18:01 | XMS_ITS | Clinical Summary ---
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 [employer] Name Role Phone Unavailable Primary Care Provider [...] Panel 1967 SDOH Screening 1967 Sigmoidoscopy 1967 Disability Screening 1967 Alcohol/Substance Use Screening 1979 Tobacco Screening 1979 Hepatitis C Screening 12/16/1985 DTaP/Tdap/Td Vaccines (1 - Tdap) 12/16/1986 Hepatitis B Vaccines (1 of 3 - 19+ 3-dose series) 12/16/1986 Pneumococcal Vaccine: 50+ Ye ars (1 of 1 - PCV) 12/16/2017 Zoster Vaccines (1 of 2) 12/16/2017 COVID-19 Vaccine (2024-2 6 season) 2025 Influenza Vaccine (#1) 2025 RSV Patients and Pa tients Aged 60 [...] patient's age to complete this topic Meningococcal B Vaccine Aged Out No l onger eligible based on patient's age to complete this topic Meningococcal Vaccine Aged Out No kelly anthony eligible based on patient's age to complete this topic RSV under 20 months Aged Out No longe r eligible based on patient's age to complete this topic Rotavirus Vaccines Aged Out No longer eligible based on patient's age to complete this topic Insurance [place] [id number] MEDICARE
== END 2025-08-28 14:57 | disposition home or self-care (01) ==
LOC: HO.HMCH 14:16
PROVIDERS: PCP Internal Medicine; Visit Provider Internal Medicine
DX: E11.65 Type 2 diabetes mellitus with hyperglycemia (principal); I63.9 Cerebral infarction, unspecified; F19.11 Other psychoactive substance abuse, in remission; J40 Bronchitis, not specified as acute or chronic; E78.2 Mixed hyperlipidemia; G57.93 Unspecified mononeuropathy of bilateral lower limbs; G89.4 Chronic pain syndrome; I73.9 Peripheral vascular disease, unspecified; R03.0 Elevated blood-pressure reading, without diagnosis of hypertension; G47.00 Insomnia, unspecified; F41.9 Anxiety disorder, unspecified; F32.9 Major depressive disorder, single episode, unspecified; F17.200 Nicotine dependence, unspecified, uncomplicated; E66.3 Overweight

== ENCOUNTER → 2025-08-28 14:15 | Outpatient (BNVA) | payer OTHER, SELFPAY | PROVIDERS: PCP Internal Medicine; Visit Provider Internal Medicine | DX: J40 Bronchitis, not specified as acute or chronic (principal); E78.2 Mixed hyperlipidemia; E11.65 Type 2 diabetes mellitus with hyperglycemia; G57.93 Unspecified mononeuropathy of bilateral lower limbs; G89.4 Chronic pain syndrome; I73.9 Peripheral vascular disease, unspecified; R03.0 Elevated blood-pressure reading, without diagnosis of hypertension; F19.11 Other psychoactive substance abuse, in remission; G47.00 Insomnia, unspecified; F41.9 Anxiety disorder, unspecified; F32.9 Major depressive disorder, single episode, unspecified; F17.200 Nicotine dependence, unspecified, uncomplicated; E66.3 Overweight; Z86.73 Personal history of transient ischemic attack (TIA), and cerebral infarction without residual deficits; Z13.31 Encounter for screening for depression | CPT/HCPCS: 96127; 99212 ==

== ENCOUNTER 2025-08-29 07:55 | Outpatient (REF) | payer OTHER, SELFPAY ==
--- NOTE | ~2025-08-29 | XR_ITS ---
EXAMINATION: XR CHEST 2 VIEWS HISTORY: J98.8 - Other specified respiratory disorders COMPARISON: Comparison is made with the prior examination dated 09/20/2024. FINDINGS: PA and lateral views of the chest are submitted. The lungs are expanded and clear. There is no pleural effusion, pneumothorax, or pulmonary vascular congestion. The heart is normal in size. The bones are intact. XR/XR chest 2V IMPRESSION: No acute cardiopulmonary abnormality. Electronically signed by: Levi Sevilla MD 08/29/2025 08:37 AM EST
--- OUTSIDE RECORDS SUMMARY | 2025-08-29 07:58 | XMS_ITS | Clinical Summary ---
Author Organization [employer] Address [address] [facility] [address] [place] [address] Care Team Providers Care Claims Counsel Name Role Phone Unavailable Primary Care Provider [...] patient's age to complete this topic Insurance [place] [id number] MEDICARE
[2025-08-29 08:10] LABS: MANUAL DIFF FLAG NO
[2025-08-29 08:52] LABS: Hematocrit 43.3 % (42.0-52.0); Hemoglobin 14.2 g/dl (14.0-18.0); Imm Gran Abs Auto 0.03 X10*3/uL (0.00-0.03); Imm Gran Pct Auto 0.3 % (0.0-0.4); Lymphocytes Absolute Auto 3.4 X10*3/uL (1.2-4.9); Mean Corpuscular HGB Conc 32.8 g/dl (31.0-36.0); Mean Corpuscular Hemoglobin 29.5 pg (27.0-33.0); Mean Corpuscular Volume 89.8 fL (80.0-98.0); NRBC Abs Auto 0.000 X10*3/uL (0.0-0.012); NRBC Pct Auto 0.0 /100WBC (0.0-0.2); Platelet Count 304 X10*3/uL (160-400); Red Blood Count 4.82 X10*6/uL (4.60-5.80); White Blood Count 10.7 X10*3/uL (4.8-10.8)
[2025-08-29 09:36] LABS: Alanine Aminotransferase 33 U/L (0-40); Albumin Level 4.4 g/dL (3.5-5.0); Alkaline Phosphatase 78 U/L (39-117); Anion Gap 12 (12-20); Aspartate Amino Transferase 26 U/L (5-37); Blood Urea Nitrogen 18 mg/dL (9-16); Calcium 9.3 mg/dL (8.4-10.2); Carbon Dioxide 31 mmol/L (22-29); Chloride 102 mmol/L (96-108); Cholesterol 152 mg/dL (<200); Estimated Glomerular Filt Rate > 60; HDL Cholesterol 34 mg/dL (>40); Potassium 4.6 mmol/L (3.3-5.1); Sodium 140 mmol/L (135-145); Total Protein 6.7 g/dL (6.5-8.0); Triglycerides 272 mg/dL (<150)
[2025-08-29 09:56] LABS: Folate 6.4 ng/mL (> or = 4.0); Vitamin B12 452 pg/mL (200-900)
== END 2025-08-29 07:56 | disposition home or self-care (01) ==
LOC: HO.XRAY 07:55
PROVIDERS: PCP Internal Medicine; Visit Provider Internal Medicine
DX: E11.9 Type 2 diabetes mellitus without complications (principal); E53.8 Deficiency of other specified B group vitamins; E78.00 Pure hypercholesterolemia, unspecified; J98.8 Other specified respiratory disorders; D64.9 Anemia, unspecified; E55.9 Vitamin D deficiency, unspecified; R30.0 Dysuria
CPT/HCPCS: 36415; 71046; 80053; 80061; 82306; 82607; 82746; 83036; 84443; 85025

== ENCOUNTER → 2025-08-29 08:12 | Outpatient (BNV) | payer OTHER, SELFPAY | PROVIDERS: PCP Internal Medicine; Visit Provider Radiology Diagnostic Radiology | DX: J98.8 Other specified respiratory disorders (principal) | CPT/HCPCS: 71046 ==